=== PATIENT | male | born 2000 | race Caucasian/White ===

== ENCOUNTER 2020-02-08 20:48 | Emergency (ER) | payer OTHER, SELFPAY ==
[2020-02-08 21:02] VITALS: BP 144/54; PULSE 90; RESP 16; TEMP 36.8; O2SAT 97
[2020-02-08] MEDS: LORATADINE 10 MG TABLET PO (21:38)
--- NOTE | 2020-02-08 21:41 | ED.ALLEREA ---
HPI - Allergic Reaction General Chief complaint: Allergic Reaction Stated complaint: allergic reaction Source: patient Mode of arrival: ambulatory Limitations: no limitations History of Present Illness HPI narrative: Octavia Aleman is a 19-year-old who started having itchy hives above fiber 6:00 p.m. tonight, about 4 or 5 hours ago. He has never had this before. he denies lips tongue abdominal pain or lightheadedness. His rash is located from his neck down. The only new medication he is using as ondansetron. He does not know of any other medication given in the hospital. He is not aware of anything that makes the rash worse or improved. He was admitted to [facility] including for 5 days ago was discharged yesterday. He had developed nausea and headaches fever and difficulty breathing. He states he was intensive care unit for several days, COVID was ruled out, although with his nausea symptoms has resolved. He has been taking ondansetron for that. His last temperature was taken yesterday it was 99.6. There is no records available but it sounds like [facility] never made a definitive diagnosis. IQ was recently discharged from [facility]. He denies other chronic illnesses Related Data Home Medications Medication Instructions Recorded Confirmed ondansetron 4 mg PO BID PRN 02/08/20 02/08/20 Allergies Allergy/AdvReac Type Severity Reaction Status Date / Time No Known Allergies Allergy Verified 02/08/20 21:08 Review of Systems Constitutional: Constitutional: Denies chills and Denies fever(s) ENT: Denies sore throat Cardiovascular: Cardiovascular: Denies chest pain Respiratory: Respiratory: Denies cough Gastrointestinal: Gastrointestinal: Denies abdominal pain, Denies diarrhea, Denies nausea and Denies vomiting Genitourinary: Genitourinary: Reports genital lesions (recent small bumps in genital area) Integumentary/Breasts: Skin/Breast: Reports system reviewed and no additional complaints, except as docu Exam Narrative: Exam Narrative: Healthy-appearing male periodically scratching his arms and abdomen. Const: Orientation/consciousness: patient oriented x3 HENMT: Other: No conjunctival injection or periorbital swelling no facial rash or swelling. No swelling of lips. buccal mucosa is without lesions oropharynx the redness or exudate. Neck: Neck: no lymphadenopathy Chest: Chest palpation & inspection: normal inspection of the chest Resp: Effort & Inspection: normal respiratory effort Cardio: Rate: regular rate Rhythm: regular rhythm GI: GI Palp: Yes Soft to palpation and No Tenderness to palpation present (GI) Other: No organomegaly : Other: scattered excoriated papules in the suprapubic area, 1 on his penis. These are not vesicular red draining or umbilicated. no urethral discharge Skin: Other: would 2 cm hives scattered on his trunk arms illness on his thighs. He has linear highs from scratching, i.e. dermatographism. no lesions on the soles of the feet. Cavity erythematous macules on his pulse. Course Course Emergency Course: He was instructed to return if there is worsening of his symptoms. Will try promethazine 25 mg 4 times a day for his nausea and stopping ondansetron. If he continues to have nausea then resuming the ondansetron. Should he develop additional symptoms or worse to have aortic area he can return. I recommended that he follow-up with a primary care doctor in 3-6 days if the urticaria has not resolved. Vital Signs Vital signs: Vital Signs Temperature 36.8 C 02/08/20 21:02 Pulse Rate 90 02/08/20 21:02 Respiratory Rate 16 02/08/20 21:02 Blood Pressure 144/54 H 02/08/20 21:02 Pulse Oximetry 97 02/08/20 21:02 Temperature 36.8 C 02/08/20 21:02 Pulse Rate 90 02/08/20 21:02 Respiratory Rate 16 02/08/20 21:02 Blood Pressure 144/54 H 02/08/20 21:02 Pulse Oximetry 97 02/08/20 21:02 MDM - Allergic Reaction MDM Narrative
== END 2020-02-08 21:51 | disposition home or self-care (01) ==
PROVIDERS: Emergency Provider Family Medicine
DX: L50.9 Urticaria, unspecified (principal)
CPT/HCPCS: 99283; A9270

== ENCOUNTER 2020-08-23 17:26 | Emergency (ER) | payer OTHER, SELFPAY ==
[2020-08-23 17:38] VITALS: BP 154/75; PULSE 87; RESP 12; TEMP 37.1; O2SAT 97
--- NOTE | 2020-08-23 17:48 | ED.HEATRA ---
HPI - Head Injury General Chief complaint: Wound/Laceration Stated complaint: cut head open Time Seen by Provider: 08/23/20 17:48 Source: patient Mode of arrival: ambulatory Limitations: no limitations History of Present Illness HPI Narrative: 20-year-old man comes in today complaining of a laceration on the top of his head. Patient states that she stood up and struck his head on a door handle. It happened within the last hour 2. He denies loss of consciousness, nausea, vomiting, visual changes or difficulty walking. MD Complaint: head injury Onset (ago): hour(s) (1) Mechanism of Injury: other Place: outdoors Loss of Consciousness: no Location of injury: parietal Severity: mild Quality: sharp Radiation: none Other Injuries: none Associated symptoms: denies other symptoms Related Data Allergies Allergy/AdvReac Type Severity Reaction Status Date / Time No Known Allergies Allergy Verified 08/23/20 17:36 Review of Systems Constitutional: Constitutional: Denies chills and Denies fever(s) Eyes: Eyes: Denies change in vision and Denies photophobia ENT: Denies dysphagia, Denies nasal congestion and Denies sore throat Cardiovascular: Cardiovascular: Denies chest pain and Denies radiating jaw, neck or arm pain Respiratory: Respiratory: Denies cough, Denies dyspnea and Denies wheezing Gastrointestinal: Gastrointestinal: Denies abdominal pain, Denies diarrhea, Denies nausea and Denies vomiting Neurologic: Denies confusion, Denies vertigo, Denies dizziness, Denies syncope, Denies headache(s) and Denies focal weakness Psychiatric: Psychiatric: Denies anxiety and Denies depression Endocrine: Endocrine: Denies polydipsia and Denies polyuria Hematologic/Lymphatic: Hematologic/Lymphatic: Denies easy bleeding and Denies easy bruising Allergic/Immunologic: Allergic/Immunologic: Denies lip swelling and Denies tongue swelling PMF Social History Social History (Updated 08/23/20 @ 18:08 by Rosales Diaz MD) Smoking status: Never smoker Alcohol intake: never Substance use: never Living arrangements: with family Gender identity (if verbalized by the patient): Male Exam Const: General: healthy appearing, no acute distress and alert Orientation/consciousness: patient oriented x3 HENMT: Head: normal to inspection and laceration ( 4 cm on the right parietal scalp. No bony abnormalities to palpation.) Ears: external ears normal, TM's normal bilaterally and EAC's normal General nose exam: Normal nares present Face and sinus: normal facial exam Mouth: Yes moist mucous membranes Throat: posterior oropharynx normal Eyes: Conjunctivae: conjunctivae normal Pupils: Equal, round and reactive pupils present EOM: EOMs intact bilaterally Resp: Effort & Inspection: normal respiratory effort and not labored Auscultation: clear to auscultation bilaterally, no rales, no rhonchi and no wheezes Cardio: Rate: regular rate Rhythm: regular rhythm Heart sounds: no murmurs Skin: General skin exam: normal color, no jaundice and no pallor Rashes: no rashes Neuro: General: patient oriented x3, moves all extremities and no focal motor deficits Cranial nerves: Yes CN's II-XII intact bilaterally Speech: normal speech Gait exam (Neuro): Normal gait present Other: Normal Heel/waterman bilaterally, [id number] bilaterally, normal tandem walk, normal Romberg. Extrem: General: normal to inspection and no clubbing, cyanosis or edema Psych: Appearance: grossly normal and well kempt Mental Status: mental status grossly normal Affect: normal affect Attitude: cooperative Thought content: Yes Normal thought content present Course Vital Signs Vital signs: Vital Signs Temperature 37.1 C 08/23/20 17:38 Pulse Rate 87 08/23/20 17:38 Respiratory Rate 12 08/23/20 17:38 Blood Pressure 154/75 H 08/23/20 17:38 Pulse Oximetry 97 08/23/20 17:38 Temperature 37.1 C 08/23/20 17:38 Pulse Rate 87 08/23/20 17:38
[2020-08-23 18:24] VITALS: BP 120/80; PULSE 70; RESP 18; TEMP 36.4; O2SAT 98
== END 2020-08-23 18:25 | disposition home or self-care (01) ==
PROVIDERS: Emergency Provider Emergency Medicine
DX: S01.01XA Laceration without foreign body of scalp, initial encounter (principal); W22.8XXA Striking against or struck by other objects, initial encounter
CPT/HCPCS: 12002; 99282

== ENCOUNTER 2025-06-13 14:41 | Outpatient (CLI) | payer BC, SELFPAY ==
--- NOTE | ~2025-06-13 | XR_ITS ---
EXAMINATION: XR wrist RT w scaphoid, 06/13/2025 14:45 CDT HISTORY: RIGHT WRIST INJURY COMPARISON: No comparisons available. Findings: No acute fracture or malalignment. No significant degenerative changes. Soft tissues unremarkable. Impression: No acute fracture or malalignment. Reviewed, dictated and finalized at location A. Impression: No acute fracture or malalignment.
--- OUTSIDE RECORDS SUMMARY | 2025-06-13 15:02 | XMS_ITS | Patient Health Record ---
Author Organization [facility] Address [address] [place] [address] Care Team Providers Care Systems Manager Name Role Phone Lorenza Carrillo Primary Care Provider [phone] Reason For Referral No Information Medications Medication SIG (Take, Route, Fr equency, Duration) Notes Start Date End Date Status Multivitamin Unknown hydrOXYzine HCl 50 MG 1 tablet as needed Orally every 6 hrs Unknown Social History Tobacco Use: Social History Observation Description Date Details (start date - stop date) Never Smoker NA - NA Sex Assigned At : Social History Observation Description Sex Assigned At Male Dont use, Tobacco Use/Smoking Question Answer Notes Are you a nonsmoker Problems Problem Type SNOMED Code ICD Code Onset Dates Problem Status W/U Status Risk Notes Problem Anxiety (69166537) Anxiety (F41.9) Active confirmed Plan Of Treatment No Information Insurance Providers Payer Name Payer Address Payer Phone Subscriber Number Group Number Insured Name Patient Relationship to Insured Coverage Start Date Coverage End Date [employer] [facility] Attn Claims Department [address] [place] [phone] [id number] Shaquille Lugo Self - patient is the insured 0 [facility] [employer] Attn Claims Department [address] [place] [phone] [id number] Shaquille Lugo Self - patient is the insured 0 Medical (General) History Medical History History ICD Code Eczema Depression Substance Use Disorder (meth) Surgical History Surgery Date(Month/Year) Denies Hospitalization History Reason Date(Month/Year) Denies
--- OUTSIDE RECORDS SUMMARY | 2025-06-13 15:02 | XMS_ITS | Clinical Summary ---
Author Organization [facility] Address [address] [place] [address] Care Team Providers Care Assistant Terminal Manager Name Role Phone Kar Cedillo MD Primary Care Provider [phone] Encounters Date Type Department Care Team Description 06/09/2025 4:44 PM CDT - 06/09/2025 11:59 PM CDT Hospital Encounter [facility] [address] [place] [address] Kar Cedillo MD Discharge Disposition: Home or Self Care (Routine Discharge) 06/09/2025 Travel from Last 3 Months Social History Tobacco Use Types Packs/Day Years Used Date Smoking Tobacco: Never Assessed Sex and Gender Information Value Date Recorded Sex Assigned at Male 06/09/2025 4:28 PM CDT Legal Sex Male 2:36 PM CDT Gender Identity Not on file Sexual Orientation Not on file Plan of Treatment Health Maintenance Due Date Last Done Comments Annual Physical 2003 Hepatitis C 2018 DTaP, Tdap and Td Vaccines (7 - Td or Tdap) 06/16/2022 06/16/2012, 03/28/2006, 10/23/2001, Additional history exists COVID-19 Vaccine ( season) 2025 Hepatitis B Vaccines Completed 10/23/2001, 01/23/2001, 2000 HPV Vaccines Completed 05/18/2013, 06/23, 06/16/2012 Meningococcal Vaccine Completed 07/06/2018 Meningococcal B Vaccine Aged Out No l onger eligible based on patient's age to complete this topic Pneumococcal Vaccine: Pediatrics (0 to 5 Years) and At-Risk Patients (6 to 49 Years) Aged Out No longer eligible based on patient's age to complete this topic RSV Immunizations Under 20 Months Aged Out No longer eligible based on patient's age to complete this topic Procedures Procedure Name Priority Date/Time Associated Diagnosis Comments XR KNEE LT 3V Routine 06/09/2025 5:02 PM CDT Left knee pain from Last 3 Months Results * XR KNEE LT 3V (06/09/2025 5:02 PM CDT) Anatomical Region Laterality Modality Knee Radiographic Sarita ging 06/09/2025 6:44 PM CDT Impressions 06/09/2025 6:44 PM CDT IMPRESSION: No acute bony abnormalities. Ordered By: KAR CEDILLO Interpreted By: Chuck Serrano MD, 06/09/2025 6:44 PM Narrative 06/09/2025 6:44 PM [address]T [address] [place] [address] Examination: XR KNEE LT 3V Exam time: 06/09/2025 5:02 PM Clinical history: Anterior knee pain. Comparison: Previous. Technique: 3 views. Findings: There is no malalignment. No acute bony abnormalities. Surrounding soft tissues of unremarkable. The joint spaces well maintained. Procedure Note Chuck Serrano MD - 06/09/[address] [place] [address] Examination: XR KNEE LT 3V Exam time: 06/09/2025 5:02 PM Clinical history: Anterior knee pain. Comparison: Previous. Technique: 3 views. Findings: There is no malalignment. No acute bony abnormalities.Surrounding soft tissues of unremarkable. The joint spaces wellmaintained. IMPRESSION: No acute bony abnormalities. Ordered By: KAR CEDILLO Interpreted By: Chuck Serrano MD, 06/09/2025 6:44 PM Kar Cedillo MD GENERAL IMAGING Final Resul t from Last 3 Months Insurance [facility] Care Teams Assistant Terminal Manager Relationship Specialty Start Date End Date Kar Cedillo MD [address] [place] [phone] PCP - General FAMILY PRACTICE 06/09/25
--- OUTSIDE RECORDS SUMMARY | 2025-06-13 15:02 | XMS_ITS | Clinical Summary ---
Author Organization [facility] Address [address] [place] [address] Phone Care Team Providers Care Presentation Manager Name Role Phone Provider, None Primary Care Provider Unavailabl e Allergies No known active allergies Medications acetaminophen (TYLENOL) 325 MG Tablet Take 2 Tabs by mouth every 4 hours as needed for Mild or more severe pain. 0 02/07/2020 Active ondansetron (ZOFRAN-ODT) 4 MG TABLET DISPERSIBLE Take 1 Tab by mouth every 12 hours as needed for Nausea - 1st line. 10 Tab 02/07/2020 Active Active Problems Problem Noted Date Diagnosed Date Marijuana use 02/05/2020 Elevated troponin 02/04/2020 Positive D dimer 02/04/2020 Suspected 2019 novel coronavirus infection 02/03 Family History Relation Name Status Comments Father Alive Mother Alive Social History Tobacco Use Types Packs/Day Years Used Date Smoking Tobacco: Every Day Smokeless Tobacco: Never Alcohol Use Standard Drinks/Week Comments Yes 0 (1 standard drink = 0.6 oz pur e alcohol) Sexually Active Control Partners Comments Yes Female Sex and Gender Information Value Date Recorded Sex Assigned at Not on file Legal Sex Male 1:53 PM CDT Gender Identity Not on file Sexual Orientation Not on file Last Filed Vital Signs Vital Sign Reading Time Taken Comments Blood Pressure 113/67 02/07/2020 11:39 AM CDT Pulse 75 02/07/2020 11:39 AM CDT Temperature 36.7 C (98.1 F) 02/07/2020 11:39 AM CDT Respiratory Rate 18 02/07/2020 11:39 AM CDT Oxygen Saturation 99% 02/07/2020 11:39 AM CDT Inhaled Oxygen Concentration - - Weight 73.9 kg (163 lb) 02/05/2020 4:25 AM CDT Height 182.9 cm (6') 02/04/2020 5:07 PM CDT Body Mass Index 22.11 02/04/2020 5:07 PM CDT Plan of Treatment Health Maintenance Due Date Last Done Comments Hepatitis C Virus (HCV) Screening 2000 SARS-COV-2 Immunization ( - 2023- season) 2024 Influenza Immunization (#1) 2025 07/06/2018, 0 06/16/2012 Respiratory Syncytial Virus (RSV) Immunization (Adult) (1 - 1-dose 75+ series) 2075 Hepatitis B Immunization Completed 002, 01/23/2001, 2000 DTaP/Tdap/Td Immunization Discontinued 2011, 03/28/2006, 10/23/2001, Additional history exists TdaP Immunization Completed 06/16/2012 Human Papillomavirus (HPV) Immunization Completed 05/18/2013, 07/14/2012, 06/16/2012 Meningococcal Immunization (ACWY) Completed 07/06/2018 Pneumococcal Immunization Combined Aged Out No longer eligible based on patient's age to complete this topic Rotavirus Immunization Aged Out No lo nger eligible based on patient's age to complete this topic Insurance MEDICAID [facility] Advance Directives * Full Code (Latest Code Status on File) Date Activated Date Inactivated Comments 02/04/2020 5:47 PM 02/07/2020 3:18 PM CPR-Full Michael atment: FULL ARREST: Attempt Resuscitation/CPR wit intubation and mechanical ventilation. PRE-ARREST: Use entire range of life support measures to stabilize the patient. Care Teams Presentation Manager Relationship Specialty Start Date End Date Provider, None [place] PCP - General 02/04/20
== END 2025-06-13 14:42 | disposition home or self-care (01) ==
LOC: CHSIMG 14:45
PROVIDERS: PCP Family Medicine; Visit Provider Family Medicine
DX: S69.91XA Unspecified injury of right wrist, hand and finger(s), initial encounter (principal)
CPT/HCPCS: 73110